=== PATIENT | male | born 1950 | race Caucasian/White ===

== ENCOUNTER 2022-08-10 13:06 | Inpatient (IN) ==
[2022-08-10] MEDS ORDERED: 0.9 % SODIUM CHLORIDE 1,000 ML IV ONE (13:21)
[2022-08-10] MEDS ORDERED: ASPIRIN 81 MG TAB.CHEW CHEWED ONE (13:21)
[2022-08-10] MEDS ORDERED: DILTIAZEM 25 MG/5 ML VIAL IV ONE (13:40)
--- NOTE | 2022-08-10 13:53 | Emergency Department Note ---
Chest Pain HPI General Chief Complaint: Chest Pain Stated Complaint: SOB Time Seen by Provider: 08/10/22 13:11 Source: patient and family Mode of arrival: ambulatory Limitations: no limitations History of Present Illness HPI Narrative: Narrative: Patient presents ED with complaints of intermittent chest pain x1 week prior to arrival. Patient states that intermittent chest pain and heart palpitations with intermittent shortness of breath as well. He does report a history of A- fib. States he last saw his complaint adjuster about 2 weeks ago. I did an echo at that time was unremarkable. Patient said that his complaint adjuster did make some changes to his diuretic. Patient denies fever, chills, nausea, vomiting, abd ominal pain, hemoptysis, headache, vision changes, facial droopiness, slurred speech, extremity weakness, extremity numbness. Patient denies any other leaving aggravating factors. Related Data Home Medications Medication Instructions Recorded Confirmed C-Pap Machine with Water Not Applicable 03/31/19 07/07/22 acetaminophen 325 mg tablet 650 mg PO Q6H PRN 05/16/20 07/07/22 (Tylenol) Previous Rx's Medication Instructions Recorded magnesium oxide 400 mg (241.3 mg 400 mg PO BID #60 tabs 05/16/20 magnesium) tablet lisinopril 40 mg tablet 40 mg PO QDAY #30 tabs 08/27/21 apixaban 5 mg tablet (Eliquis) 5 mg PO BID #60 tabs 09/04/21 amlodipine 10 mg tablet 10 mg PO QDAY #90 tabs 04/20/22 gabapentin 400 mg capsule 400 mg PO BID #60 caps 05/06/22 (Neurontin) metoprolol succinate 50 mg 50 mg PO BID #60 tabs 05/18/22 tablet,extended release 24 hr (Toprol XL) atorvastatin 10 mg tablet (Lipitor) 10 mg PO QDAY #30 tabs 06/29/22 Allergies Allergy/AdvReac Type Severity Reaction Status Date / Time No Known Drug Allergies Allergy Unverified 08/10/22 13:19 Review of Systems ROS ROS Narrative: Narrative: All systems ED: reviewed and negative except as stated. [facility] Narrative Patient History Narrative: Narrative: Medical/Surgical/Family History All Active Problems (Updated 08/10/22 @ 15:24 by Los Stinson DO) Initial Medicare annual wellness visit (Acute) Fall at home (Chronic) Wears hearing aid in both ears (Chronic ~12/2012) Osteoarthritis of right knee (Chronic) Erectile dysfunction (Chronic) Sleep apnea, obstructive (Chronic) Hyperlipidemia (Chronic) HTN (hypertension) (Chronic) Diabetes mellitus (Chronic) Postherpetic neuralgia (Chronic) Elevated PSA (Chronic) External hemorrhoids (Chronic) Tubular adenoma of colon (Chronic) Atrial fibrillation (Chronic ~02/2010) Atrial fibrillation with RVR (Chronic) Medical History (Updated 08/10/22 @ 15:24 by Los Stinson DO) Atrial fibrillation (~02/2010) Atrial fibrillation with RVR Diabetes mellitus Adult onset Elevated PSA Erectile dysfunction External hemorrhoids Fall at home HTN (hypertension) Hyperlipidemia Osteoarthritis of right knee Postherpetic neuralgia Sleep apnea, obstructive Tubular adenoma of colon Wears hearing aid in both ears (~12/2012) Surgical History History of angioplasty (~2010) No Stent History of cardiac radiofrequency ablation (~12/2016) [place] History of colonoscopy (~08/10/18) Dr. Gamez History of surgery on arm (~12/18/08) Right Humerus ORIF History of total right knee replacement (~11/2004) Family History Other No pertinent family history Social History Smoking Status: Former smoker Alcohol Intake Frequency: does not drink Substance Use: does not use Exam Narrative Narrative: Narrative: General Limitations: no limitations General appearance: Absent in distress ENT ENT: Present normal oropharynx and mucous membranes moist Chest Chest: Present normal inspection; Absent tenderness Respiratory Respiratory: Present normal lung sounds bilaterally; Absent respiratory distress Cardiovascular Cardiovascular: Present tachycardia and irregular rhythm Adbominal Abdominal: Present soft; Absent tenderness Extremities Extremities: Present normal inspection and normal capillary refill Neurological Neurological: Present oriented X3 and normal gait Psychiatric Psychiatric: Present normal affect and normal mood Skin Skin: Present warm (WNL) and intact Course Course Course Narrative: Patient was evaluated for complaints of chest pain with associated shortness of breath and heart palpitations. Patient was found to be severely tachycardic with a heart rate greater than 130. EKG was obtained and reviewed by myself and was able to identify A-fib with RVR. Labs were obtained show the patient had a negative troponin. BNP was slightly elevated up over 4000. X-ray obtained with image reviewed myself no acute cardiopulmonary finding. I initially ordered diltiazem IV as patient's initial blood pressure was greater than 120 systolically. However shortly prior to administration patient's blood pressure had dropped down into the 90s so I discontinued the IV diltiazem. I ordered IV amiodarone push. Patient was monitored but his heart rate improved for only a s hort period of time then jump back up to greater than 130. Patient was placed on amiodarone drip. I believe it be prudent to admit patient to the hospitalist service for A-fib with RVR. Case discussed with hospitalist who has agreed to admit the patient. Plan of care was discussed with patient and he expressed verbal understanding and agreement of plan Consultations Consultation #1: Case discussed with hospitalist who has agreed to admit the patient Time: 15:55 Vital Signs Vital signs: Vital Signs Temperature 97.8 F 08/10/22 13:15 Pulse Rate 144 H 08/10/22 13:15 Respiratory Rate 18 08/10/22 13:15 Blood Pressure 112/71 08/10/22 13:15 Pulse Oximetry (%) 95 08/10/22 13:15 Oxygen Delivery Method Room Air 08/10/22 13:15 Temperature 97.8 F 08/10/22 13:15 Pulse Rate 105 H 08/10/22 15:09 Respiratory Rate 22 08/10/22 15:09 Blood Pressure 108/84 08/10/22 14:47 Pulse Oximetry (%) 97 08/10/22 15:09 Oxygen Delivery Method Room Air 08/10/22 13:21 [facility] Narrative Medical decision making narrative: Narrative: Differential Diagnosis Differential Diagnosis: A-fib, [place], PE, pneumonia Medical Records Medical records reviewed: Yes I reviewed the patient's medical records. Lab Data Lab results reviewed: Yes I reviewed the patient's lab results. 08/10/22 13:36 Labs: Lab Results 08/10/22 08/10/22 08/10/22 Range/Units 13:36 13:36 13:39 WBC 8.6 (4.5-11.0) K/mcL RBC 4.35 L (4.63-6.08) M/mcL Hgb 13.7 (13.7-17.5) g/dL Hct 39.3 L (40.1-51.0) % POC Hct 39.0 L (41-55) MCV 90.3 (80.0-100.0) fL MCH 31.5 (26.0-34.0) pg MCHC 34.9 (31.0-36.0) g/dL RDW 13.5 (11.5-14.5) % Plt Count 219 (140-440) K/mcL MPV 10.2 (8.8-12.5) fL Immature Gran % (Auto) 0.1 (0.0-0.5) % Neut % (Auto) 68.1 (38.0-78.0) % Lymph % (Auto) 21.2 (15.5-49.0) % [place] % (Auto) 8.6 (1.0-12.0) % Eos % (Auto) 1.4 (0.0-7.0) % Baso % (Auto) 0.6 (0.0-2.0) % Lymph # (Auto) 1.82 (1.50-4.80) K/mcL [place] # (Auto) 0.74 (0.10-0.90) K/mcL Eos # (Auto) 0.12 (0.00-0.70) K/mcL Baso # (Auto) 0.05 (0.00-0.30) K/mcL Immature Gran # 0.01 (0.00-0.05) K/mcl Absolute Neutrophils 5.84 (1.80-8.00) K/mcL POC Sodium 141 (133-145) POC Potassium 4.2 (3.3-5.1) POC Chloride 104 (96-108) POC Total CO2 24.0 (22-30) POC BUN 18 (6-20) POC Creatinine 1.5 H (0.6-1.2) POC Glucose 143 H (70-105) POC WB Ioniz Calcium 1.04 L (1.16-1.32) Total Bilirubin 0.8 (0.1-1.0) mg/dL Direct Bilirubin 0.3 H (<0.3) mg/dL AST 37 (<40) U/L ALT 88 H (<40) U/L Alkaline Phosphatase 75 (39-117) U/L NT-Pro-B Natriuret Pep 4541.0 H (<125.0) pg/mL Total Protein 6.3 (5.9-8.4) gm/dL Albumin 3.9 (3.2-5.2) gm/dL Globulin 2.4 (2.2-3.7) gm/dL POC Troponin I (0.00-0.08) 08/10/22 Range/Units 13:40 WBC (4.5-11.0) K/mcL RBC (4.63-6.08) M/mcL Hgb (13.7-17.5) g/dL Hct (40.1-51.0) % POC Hct (41-55) MCV (80.0-100.0) fL MCH (26.0-34.0) pg MCHC (31.0-36.0) g/dL RDW (11.5-14.5) % Plt Count (140-440) K/mcL MPV (8.8-12.5) fL Immature Gran % (Auto) (0.0-0.5) % Neut % (Auto) (38.0-78.0) % Lymph % (Auto) (15.5-49.0) % [place] % (Auto) (1.0-12.0) % Eos % (Auto) (0.0-7.0) % Baso % (Auto) (0.0-2.0) % Lymph # (Auto) (1.50-4.80) K/mcL [place] # (Auto) (0.10-0.90) K/mcL Eos # (Auto) (0.00-0.70) K/mcL Baso # (Auto) (0.00-0.30) K/mcL Immature Gran # (0.00-0.05) K/mcl Absolute Neutrophils (1.80-8.00) K/mcL POC Sodium (133-145) POC Potassium (3.3-5.1) POC Chloride (96-108) POC Total CO2 (22-30) POC BUN (6-20) POC Creatinine (0.6-1.2) POC Glucose (70-105) POC WB Ioniz Calcium (1.16-1.32) Total Bilirubin (0.1-1.0) mg/dL Direct Bilirubin (<0.3) mg/dL AST (<40) U/L ALT (<40) U/L Alkaline Phosphatase (39-117) U/L NT-Pro-B Natriuret Pep (<125.0) pg/mL Total Protein (5.9-8.4) gm/dL Albumin (3.2-5.2) gm/dL Globulin (2.2-3.7) gm/dL POC Troponin I < 0.02 (0.00-0.08) Radiology Data Radiology results reviewed: Yes I reviewed the patient's radiology results. Radiology results narrative: Chest x-ray obtained with image reviewed myself, I agree with radiologist interpretation EKG Data EKG #1: EKG attestation: Yes I reviewed and interpreted this EKG. Rate: tachycardia (156) Rhythm: A.Fib Heart block present: None ST segment elevation in: None ST segment depression in: None QTc: normal QRS morphology: Present normal Interpretation: no acute changes Core Measures AMI Core Measures Followed: Yes Discharge Plan Patient/Caregiver Discharge Instructions Pt seen by ANTISQUEAK FILLER/PA only: No Clinical Impression: Atrial fibrillation Patient Disposition: Xfer As Outpt/Obs ([facility]) Condition: Fair Follow up with: Bhavik Heath MD [Primary Care Provider] - Prescriptions: No Action C-Pap Machine with Water NOTAPPLIC Rx Instructions: 13 cm H@) Full Face Mask Heated Humidifier lisinopril 40 mg tablet 40 mg PO QDAY Qty: 30 12RF Eliquis 5 mg tablet 5 mg PO BID Qty: 60 12RF amlodipine 10 mg tablet 10 mg PO QDAY Qty: 90 0RF gabapentin [Neurontin] 400 mg capsule 400 mg PO BID Qty: 60 12RF metoprolol succinate [Toprol XL] 50 mg tablet extended release 24 hr 50 mg PO BID Qty: 60 12RF atorvastatin 10 mg tablet 10 mg tablet 10 mg PO QDAY Qty: 30 12RF acetaminophen [Tylenol] 325 mg tablet 650 mg PO Q6H PRN magnesium oxide 400 mg (241.3 mg magnesium) tablet 400 mg PO BID Qty: 60 12RF
[2022-08-10 13:55] LABS: POC Calcium, Ionized 1.04 (1.16-1.32); POC Creatinine 1.5 (0.6-1.2); POC Potassium 4.2 (3.3-5.1)
[2022-08-10] MEDS ORDERED: AMIODARONE 150 MG/3 ML VIAL IV ONE ×2 (14:06→15:19)
[2022-08-10 14:15] LABS: Basophils # (Auto) 0.05 K/mcL (0.00-0.30); Basophils % (Auto) 0.6 % (0.0-2.0); Eosinophils # (Auto) 0.12 K/mcL (0.00-0.70); Eosinophils % (Auto) 1.4 % (0.0-7.0); Hematocrit 39.3 % (40.1-51.0); Hemoglobin 13.7 g/dL (13.7-17.5); Lymphocytes # (Auto) 1.82 K/mcL (1.50-4.80); Lymphocytes % (Auto) 21.2 % (15.5-49.0); Mean Cell Volume 90.3 fL (80.0-100.0); Mean Corpuscular HGB Conc 34.9 g/dL (31.0-36.0); Mean Platelet Volume 10.2 fL (8.8-12.5); Monocytes # (Auto) 0.74 K/mcL (0.10-0.90); Monocytes % (Auto) 8.6 % (1.0-12.0); Neutrophils % (Auto) 68.1 % (38.0-78.0); Platelet Count 219 K/mcL (140-440); RBC 4.35 M/mcL (4.63-6.08); Red Cell Distribution Width 13.5 % (11.5-14.5); WBC 8.6 K/mcL (4.5-11.0)
[2022-08-10] MEDS ORDERED: AMIODARONE 150 MG in DEXTROSE 5% IN WATER 100 ML IV SCH (14:30)
[2022-08-10 14:40] LABS: ALT/SGPT 88 U/L (<40); AST/SGOT 37 U/L (<40); Albumin 3.9 gm/dL (3.2-5.2); Alkaline Phosphatase 75 U/L (39-117); Bilirubin,Direct 0.3 mg/dL (<0.3); Bilirubin,Total 0.8 mg/dL (0.1-1.0); Globulin 2.4 gm/dL (2.2-3.7)
--- NOTE | 2022-08-10 14:49 | XRay Report ---
HISTORY: Chest pain, short of breath FINDINGS: The lungs are clear and normally expanded. There is no evidence of pneumonia, emphysema or congestive heart failure. The heart size, mediastinum, ej and pleura are normal. There are screws in the right humeral head. IMPRESSION: No acute abnormality Interpreted and Authenticated by: Raymond Chase 08/10/22
[2022-08-10] MEDS ORDERED: AMIODARONE 360 MG in PREMIX 1 BAG IV SCH ×2 (16:00→17:31)
--- NOTE | 2022-08-10 16:15 | Internal Med History&Physical ---
HPI History of Present Illness Patient information: Note initiated : 08/10/22 at 4:12 pm Service Date, if different from initiated Date: [] Patient: Figueroa Gomez 71 y/o M admitted on for Shortness of breath. Chief Complaint: [] History of present illness: Patient is a pleasant 71 years old male with history of morbid obesity, paroxysmal atrial fibrillation on metoprolol and Eliquis status post ablation 2016, obstructive sleep apnea on CPAP, hypertension, hyperlipidemia, diabetes mellitus 2, external hemorrhoids, impaired hearing, prostate cancer status post radical prostatectomy 01/28/2022, GERD, anxiety, former smoker quit smoking 30 y ears ago, presented with 1 week history of palpitations, shortness of breath and intermittent chest pain. 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 Patient reports he saw his hide handler Dr. Cherelle Carbajal on 07/29/2022. Echo at that time showed EF of 60%, no significant valvular disease, TSH was normal. EKG was unremarkable. Leg swelling may partially be due to amlodipine or secondary to mildly elevated blood pressure and elected to try diuretic. Patient reports no fever, chills nausea or vomiting. He reports no headache, focal deficits slurred speech. On presentation patient was found to be in A-fib with RVR, ventricular rate 156 bpm, rate dependent ST-T wave changes, he was borderline hypotensive and loaded with amiodarone in ER however remains in RVR. Labs remarkable for creatinine of 1.5, BNP 4541, negative troponin. Patient will be admitted to PCU on amiodarone drip Review of system 14 point review of system completed and was negative except mentioned above Physical examination Alert and awake, well nourished obese male, in no acute distress Normocephalic, atraumatic, increased neck circumference Chest is clear bilaterally S1 and S2, irregularly irregular, no murmurs heard, heart rate in 20s to 130s, at least 1+ peripheral edema Abdomen is obese, soft and nontender Alert and oriented, no focal deficits Appropriate mood and affect Assessment and plan A-fib with RVR status post pulmonary vein isolation/flutter ablation in 2016 Obstructive sleep apnea on CPAP Hypertension, EF 60% 07/19/09/2022 TC 154, triglycerides 89, LDL 87, HDL 50 Prediabetes, HbA1c 5.9 on 05/19 Prostate cancer status post radical prostatectomy January 2022 Postherpetic neuralgia Plan Admit to PCU Check TSH and magnesium. Keep K > 4 and Mg >2 Continue amiodarone gtt. Resume home dose metoprolol and Eliquis Monitor blood pressure closely IV Lasix 20 mg twice daily Hold lisinopril due to hypotension Continue gabapentin home dose GI and DVT prophylaxis in place Full code Critical care time 50 minutes PFSH PFS All Active Problems (Updated 08/10/22 @ 15:24 by Los Stinson DO) Initial Medicare annual wellness visit (Acute) Fall at home (Chronic) Wears hearing aid in both ears (Chronic ~12/2012) Osteoarthritis of right knee (Chronic) Erectile dysfunction (Chronic) Sleep apnea, obstructive (Chronic) Hyperlipidemia (Chronic) HTN (hypertension) (Chronic) Diabetes mellitus (Chronic) Postherpetic neuralgia (Chronic) Elevated PSA (Chronic) External hemorrhoids (Chronic) Tubular adenoma of colon (Chronic) Atrial fibrillation (Chronic ~02/2010) Atrial fibrillation with RVR (Chronic) Medical History (Updated 08/10/22 @ 15:24 by Los Stinson DO) Atrial fibrillation (~02/2010) Atrial fibrillation with RVR Diabetes mellitus Adult onset Elevated PSA Erectile dysfunction External hemorrhoids Fall at home HTN (hypertension) Hyperlipidemia Osteoarthritis of right knee Postherpetic neuralgia Sleep apnea, obstructive Tubular adenoma of colon Wears hearing aid in both ears (~12/2012) Surgical History History of angioplasty (~2010) No Stent History of cardiac radiofrequency ablation (~12/2016) [place] History of colonoscopy (~08/10/18) Dr. Gamez History of surgery on arm (~12/18/08) Right Humerus ORIF History of total right knee replacement (~11/2004) Family History Other No pertinent family history Social History marital status: occupational status: retired smoking status: Former smoker alcohol intake frequency: does not drink substance use type: does not use MEDS/ALLERGIES Home Medications and Allergies Home Medications Medication Instructions Recorded Confirmed Type C-Pap Machine with Water Not Applicable 03/31/19 07/07/22 History acetaminophen 325 mg tablet 650 mg PO Q6H PRN 05/16/20 07/07/22 History (Tylenol) magnesium oxide 400 mg (241.3 mg 400 mg PO BID #60 tabs 05/16/20 07/07/22 Rx magnesium) tablet lisinopril 40 mg tablet 40 mg PO QDAY #30 tabs 08/27/21 07/07/22 Rx apixaban 5 mg tablet (Eliquis) 5 mg PO BID #60 tabs 09/04/21 07/07/22 Rx amlodipine 10 mg tablet 10 mg PO QDAY #90 tabs 04/20/22 07/07/22 Rx gabapentin 400 mg capsule 400 mg PO BID #60 caps 05/06/22 07/07/22 Rx (Neurontin) metoprolol succinate 50 mg 50 mg PO BID #60 tabs 05/18/22 07/07/22 Rx tablet,extended release 24 hr (Toprol XL) atorvastatin 10 mg tablet (Lipitor) 10 mg PO QDAY #30 tabs 06/29/22 07/07/22 Rx Allergies Allergy/AdvReac Type Severity Reaction Status Date / Time No Known Drug Allergies Allergy Unverified 08/10/22 13:19 EXAM Constitutional Vitals: Temp Pulse Resp BP Pulse Ox O2 Del Method 97.8 F 105 H 22 108/84 97 Room Air 08/10/22 13:15 08/10/22 15:09 08/10/22 15:09 08/10/22 14:47 08/10/22 15:09 08/10/22 13:21 DATA Data Completed and Pending Labs: Labs from last 24 hours 08/10/22 08/10/22 08/10/22 13:40 13:39 13:36 WBC RBC Hgb Hct POC Hct 39.0 L MCV MCH MCHC RDW Plt Count MPV Immature Gran % (Auto) Neut % (Auto) Lymph % (Auto) [place] % (Auto) Eos % (Auto) Baso % (Auto) Lymph # (Auto) Fisher # (Auto) Eos # (Auto) Baso # (Auto) Immature Gran # Absolute Neutrophils POC Sodium 141 POC Potassium 4.2 POC Chloride 104 POC Total CO2 24.0 POC BUN 18 POC Creatinine 1.5 H POC Glucose 143 H POC WB Ioniz Calcium 1.04 L Total Bilirubin 0.8 Direct Bilirubin 0.3 H AST 37 ALT 88 H Alkaline Phosphatase 75 NT-Pro-B Natriuret Pep 4541.0 H Total Protein 6.3 Albumin 3.9 Globulin 2.4 POC Troponin I < 0.02 08/10/22 13:36 WBC 8.6 RBC 4.35 L Hgb 13.7 Hct 39.3 L POC Hct MCV 90.3 MCH 31.5 MCHC 34.9 RDW 13.5 Plt Count 219 MPV 10.2 Immature Gran % (Auto) 0.1 Neut % (Auto) 68.1 Lymph % (Auto) 21.2 [place] % (Auto) 8.6 Eos % (Auto) 1.4 Baso % (Auto) 0.6 Lymph # (Auto) 1.82 [place] # (Auto) 0.74 Eos # (Auto) 0.12 Baso # (Auto) 0.05 Immature Gran # 0.01 Absolute Neutrophils 5.84 POC Sodium POC Potassium POC Chloride POC Total CO2 POC BUN POC Creatinine POC Glucose POC WB Ioniz Calcium Total Bilirubin Direct Bilirubin AST ALT Alkaline Phosphatase NT-Pro-B Natriuret Pep Total Protein Albumin Globulin POC Troponin I A/P Time Spent With Patient Time: Total time spent is greater than 50% in coordination of care (as documented) at patient's floor/unit and/or counseling patient:
[2022-08-10] MEDS ORDERED: LACTULOSE 20 GM/30 ML ORAL.SOL PO PRN (17:31)
[2022-08-10] MEDS ORDERED: ONDANSETRON 4 MG/2 ML VIAL IV PRN (17:31)
[2022-08-10] MEDS ORDERED: ACETAMINOPHEN 325 MG TABLET PO PRN (17:31)
[2022-08-10] MEDS ORDERED: SENNOSIDES 1 TABLET PO PRN (17:31)
[2022-08-10 18:37] LABS: ALT/SGPT 80 U/L (<40); AST/SGOT 32 U/L (<40); Albumin 3.6 gm/dL (3.2-5.2); Albumin/Globulin Ratio 1.5 (1.0-2.3); Alkaline Phosphatase 72 U/L (39-117); Bilirubin,Total 0.7 mg/dL (0.1-1.0); Blood Urea Nitrogen 16 mg/dL (8-23); Calcium 8.7 mg/dL (8.6-10.4); Carbon Dioxide 23 mmol/L (22-30); Chloride 106 mmol/L (96-108); Free T4 (Free Thyroxine) 1.17 ng/dL (0.93-1.70); Globulin 2.4 gm/dL (2.2-3.7); Glomerular Filtration Rate 67; Glucose 116 mg/dL (70-105); T4 (Thyroxine) 5.9 ug/dl (5.0-12.0)
[2022-08-10] MEDS: DOCUSATE SODIUM 100 MG CAPSULE PO SCH (21:00)
[2022-08-10] MEDS: 0.9 % SODIUM CHLORIDE 10 ML SYRINGE IV SCH (22:00)
[2022-08-10] MEDS: AMIODARONE 360 MG in PREMIX 1 BAG IV SCH (23:36)
[2022-08-11] MEDS: 0.9 % SODIUM CHLORIDE 10 ML SYRINGE IV SCH ×4 (06:17→21:00)
[2022-08-11 06:55] LABS: Basophils # (Auto) 0.05 K/mcL (0.00-0.30); Basophils % (Auto) 0.7 % (0.0-2.0); Eosinophils # (Auto) 0.12 K/mcL (0.00-0.70); Eosinophils % (Auto) 1.8 % (0.0-7.0); Hematocrit 37.8 % (40.1-51.0); Lymphocytes # (Auto) 1.66 K/mcL (1.50-4.80); Lymphocytes % (Auto) 24.4 % (15.5-49.0); Mean Cell Volume 90.9 fL (80.0-100.0); Mean Corpuscular HGB Conc 34.4 g/dL (31.0-36.0); Mean Platelet Volume 10.2 fL (8.8-12.5); Monocytes # (Auto) 0.68 K/mcL (0.10-0.90); Neutrophils % (Auto) 62.8 % (38.0-78.0); Platelet Count 192 K/mcL (140-440); RBC 4.16 M/mcL (4.63-6.08); Red Cell Distribution Width 13.8 % (11.5-14.5); WBC 6.8 K/mcL (4.5-11.0)
[2022-08-11 07:07] LABS: ALT/SGPT 77 U/L (<40); AST/SGOT 29 U/L (<40); Albumin 3.5 gm/dL (3.2-5.2); Albumin/Globulin Ratio 1.7 (1.0-2.3); Alkaline Phosphatase 67 U/L (39-117); Bilirubin,Total 0.9 mg/dL (0.1-1.0); Blood Urea Nitrogen 15 mg/dL (8-23); Calcium 8.1 mg/dL (8.6-10.4); Carbon Dioxide 23 mmol/L (22-30); Chloride 108 mmol/L (96-108); Globulin 2.1 gm/dL (2.2-3.7); Glomerular Filtration Rate 76; Glucose 128 mg/dL (70-105)
[2022-08-11] MEDS: METOPROLOL SUCCINATE 50 MG TAB.XL.24H PO SCH ×2 (08:09→20:57)
[2022-08-11] MEDS: GABAPENTIN 400 MG CAPSULE PO SCH ×3 (08:09→20:57)
[2022-08-11] MEDS: ATORVASTATIN 10 MG TABLET PO SCH (08:09)
[2022-08-11] MEDS: MAGNESIUM OXIDE 400 MG TABLET PO SCH ×2 (08:09→20:57)
[2022-08-11] MEDS: amLODIPine 10 MG TABLET PO SCH (08:09)
[2022-08-11] MEDS: DOCUSATE SODIUM 100 MG CAPSULE PO SCH ×2 (08:10→20:57)
[2022-08-11] MEDS ORDERED: APIXABAN 5 MG TABLET PO SCH (09:00)
--- NOTE | 2022-08-11 09:09 | Internal Med Progress Note ---
SUBJECTIVE Subjective Patient information: Note initiated : 08/11/22 at 9:04 am Service Date, if different from initiated Date: [] Patient: Figueroa Gomez 71 y/o M admitted on 08/10/22 for Shortness of breath, AFib, RBR. Chief Complaint: [] Additional PMFSH (Level 3 Only): History of present illness: Patient is a pleasant 71 years old male with history of morbid obesity, paroxysmal atrial fibrillation on metoprolol and Eliquis status post ablation 2016, obstructive sleep apnea on CPAP, hypertension, hyperlipidemia, diabetes mellitus 2, external hemorrhoids, impaired hearing, prostate cancer status post radical prostatectomy 01/28/2022, GERD, anxiety, former smoker quit smoking 30 years ago, presented with 1 week history of palpitations, shortness of breath and intermittent chest pain. 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 Patient reports he saw his chemical dependency attendant Dr. Cherelle Carbajal on 07/29/2022. Echo at that time showed EF of 60%, no significant valvular disease, TSH was normal. EKG was unremarkable. Leg swelling may partially be due to amlodipine or secondary to mildly elevated blood pressure and elected to try diuretic. Patient reports no fever, chills nausea or vomiting. He reports no headache, focal deficits slurred speech. On presentation patient was found to be in A-fib with RVR, ventricular rate 156 bpm, rate dependent ST-T wave changes, he was borderline hypotensive and loaded with amiodarone in ER however remains in RVR. Labs remarkable for creatinine of 1.5, BNP 4541, negative troponin. Patient will be admitted to PCU on amiodarone drip 08/11 patient breathing is better after receiving Lasix, his heart rate is still elevated on amiodarone and 130s to 140s. Blood pressure is stable now, he is awaiting for his morning metoprolol dose. If heart rate does not get controlled we will start him on IV diltiazem Review of system 14 point review of system completed and was negative except mentioned above Physical examination Alert and awake, well nourished obese male, in no acute distress Normocephalic, atraumatic, increased neck circumference Chest is clear bilaterally S1 and S2, irregularly irregular, no murmurs heard, heart rate in 120s, trace peripheral edema improved from before Alert and oriented, no focal deficits Appropriate mood and affect Assessment and plan A-fib with RVR status post pulmonary vein isolation/flutter ablation in 2016 TSH, T4 and Mag within normal limit Obstructive sleep apnea on CPAP Hypertension, EF 60% 07/19 TC 154, triglycerides 89, LDL 87, HDL 50 Prediabetes, HbA1c 5.9 on 05/19 Prostate cancer status post radical prostatectomy January 2022 Postherpetic neuralgia Plan Continue amiodarone gtt. He is awaiting his morning dose of metoprolol, continue Eliquis If heart rate not controlled we will start him on diltiazem drip Monitor blood pressure closely Continue IV Lasix 20 mg twice daily Hold amlodipine and lisinopril to allow for diuresis and rate control Continue gabapentin home dose GI and DVT prophylaxis in place Full code Critical care time 45 minutes Constitutional Vitals: Vital Signs Temp Pulse Resp BP Pulse Ox O2 Del Method 98.3 F 132 H 19 127/105 98 Room Air 08/11/22 08:26 08/11/22 07:02 08/11/22 08:26 08/11/22 08:26 08/11/22 07:02 08/11/22 06:16 Period Temp Pulse Resp BP Sys/Desai Pulse Ox O2 Del Method O2 Flow Rate Last 24 Hr 97.8 F-99.1 F 38-165 0-31 91-163/70-148 93-98 Room Air-Room Air Intake and Output 08/10/22 08/11/22 08/11/22 19:59 03:59 11:59 Intake Total 1103 200 Output Total 200 625 Balance 903 -425 Weight 127.006 kg 132.948 kg Intake & Output: Intake & Output 08/10/22 08/11/22 08/11/22 19:59 03:59 11:59 Intake Total 1103 200 Output Total 200 625 Balance 903 -425 Weight 127.006 kg 132.948 kg Intake: IV 1103 200 Sodium Chloride 0.9% 1,000 ml @ 1000 Wide Open IV .Q0M ONE Rx#: [id number] Cordarone 150 mg In Dextrose 5% 103 in Water 100 ml @ 618 mls/hr IV ONCE MARILEE Rx#:[id number] Nexterone 360 mg In Premix 1 200 Bag @ 1 MG/MIN 33.333 mls/hr IV .Q6H [facility] Rx#:[id number] Output: Void Amount 200 625 Other: Meal Dinner Percent of Meal Consumed 100% Urine Appearance Clear Clear Urine Color Yellow Yellow OBJ DATA Labs 08/11/22 05:47 08/11/22 05:46 Labs: Abnormal Lab Results 08/11/22 08/11/22 08/10/22 05:47 05:46 17:39 RBC 4.16 L Hgb 13.0 L Hct 37.8 L POC Hct POC Creatinine Glucose 128 H 116 H POC Glucose Calcium 8.1 L POC WB Ioniz Calcium Direct Bilirubin ALT 77 H 80 H NT-Pro-B Natriuret Pep Total Protein 5.6 L Globulin 2.1 L 08/10/22 08/10/22 08/10/22 13:39 13:36 13:36 RBC 4.35 L Hgb Hct 39.3 L POC Hct 39.0 L POC Creatinine 1.5 H Glucose POC Glucose 143 H Calcium POC WB Ioniz Calcium 1.04 L Direct Bilirubin 0.3 H ALT 88 H NT-Pro-B Natriuret Pep 4541.0 H Total Protein Globulin Meds: Medications Acetaminophen (Acetaminophen 325 Mg Tablet) 650 mg PO Q6HP PRN; Protocol PRN Reason: Per Pain Protocol/Fever > 101 Amlodipine Besylate (Amlodipine 10 Mg Tablet) 10 mg PO QDAY [facility] Last Admin: 08/11/22 08:09 Dose: Not Given Apixaban (Apixaban 5 Mg Tablet) 5 mg PO BID [facility] Last Admin: 08/11/22 08:08 Dose: 5 mg Atorvastatin Calcium (Atorvastatin 10 Mg Tablet) 10 mg PO QDAY [facility] Last Admin: 08/11/22 08:09 Dose: 10 mg Docusate Sodium (Docusate Sodium 100 Mg Capsule) 100 mg PO BID [facility] Last Admin: 08/11/22 08:10 Dose: Not Given Gabapentin (Gabapentin 400 Mg Capsule) 400 mg PO BID [facility] Last Admin: 08/11/22 08:13 Dose: Not Given AMIODARONE 360 mg/ Premix 200 mls @ 16.667 mls/hr IV .Q12H [facility]; Protocol Stop: 08/11/22 17:35 Last Admin: 08/10/22 23:36 Dose: 0.5 mg/min, 16.667 mls/hr Lactulose (Lactulose 20 Gm/30 Ml Oral.Dina) 10 gm PO DAILYP PRN PRN Reason: Constipation Magnesium Oxide (Magnesium Oxide 400 Mg Tablet) 400 mg PO BID [facility] Last Admin: 08/11/22 08:09 Dose: 400 mg Metoprolol Succinate (Metoprolol Succinate 50 Mg Tab.Xl.24h) 50 mg PO BID [facility] Last Admin: 08/11/22 08:09 Dose: 50 mg Ondansetron HCl (Ondansetron 4 Mg/2 Ml Vial) 4 mg IV Q4HP PRN; Protocol PRN Reason: Nausea And Vomiting Senna (Sennosides 1 Tablet) 2 tab PO HSP PRN PRN Reason: Constipation Sodium Chloride (0.9 % Sodium Chloride 10 Ml Syringe) 10 ml IV Q8 [facility] Last Admin: 08/11/22 06:17 Dose: 10 ml A/P Time Spent With Patient Time: Total time spent is greater than 50% in coordination of care (as documented) at patient's floor/unit and/or counseling patient:
[2022-08-11] MEDS ORDERED: METOPROLOL SUCCINATE 25 MG TAB.XL.24H PO ONE (09:53)
[2022-08-11] MEDS: AMIODARONE 360 MG in PREMIX 1 BAG IV SCH (11:00)
[2022-08-11] MEDS: FUROSEMIDE 20 MG/2 ML VIAL IV SCH (12:09)
[2022-08-11 19:28] LABS: Estimated Average Glucose(eAG) 120 mg/dL; Hemoglobin A1C 5.8 % Hgb (4.0-6.0)
[2022-08-11] MEDS ORDERED: [UNRECOGNIZED DRUG - OTHER] SCH (21:00)
[2022-08-12] MEDS: 0.9 % SODIUM CHLORIDE 10 ML SYRINGE IV SCH (05:40)
[2022-08-12 07:05] LABS: Basophils # (Auto) 0.03 K/mcL (0.00-0.30); Basophils % (Auto) 0.6 % (0.0-2.0); Eosinophils # (Auto) 0.19 K/mcL (0.00-0.70); Eosinophils % (Auto) 3.6 % (0.0-7.0); Hematocrit 36.1 % (40.1-51.0); Hemoglobin 12.8 g/dL (13.7-17.5); Lymphocytes # (Auto) 1.18 K/mcL (1.50-4.80); Lymphocytes % (Auto) 22.1 % (15.5-49.0); Mean Cell Volume 89.1 fL (80.0-100.0); Mean Corpuscular HGB Conc 35.5 g/dL (31.0-36.0); Monocytes # (Auto) 0.48 K/mcL (0.10-0.90); Neutrophils % (Auto) 64.5 % (38.0-78.0); Platelet Count 177 K/mcL (140-440); RBC 4.05 M/mcL (4.63-6.08); Red Cell Distribution Width 13.5 % (11.5-14.5); WBC 5.4 K/mcL (4.5-11.0)
[2022-08-12 07:51] LABS: ALT/SGPT 62 U/L (<40); AST/SGOT 22 U/L (<40); Albumin 3.4 gm/dL (3.2-5.2); Albumin/Globulin Ratio 1.7 (1.0-2.3); Alkaline Phosphatase 68 U/L (39-117); Bilirubin,Total 1.2 mg/dL (0.1-1.0); Blood Urea Nitrogen 15 mg/dL (8-23); Calcium 8.2 mg/dL (8.6-10.4); Carbon Dioxide 24 mmol/L (22-30); Chloride 106 mmol/L (96-108); Glomerular Filtration Rate 76; Glucose 108 mg/dL (70-105)
[2022-08-12] MEDS: DOCUSATE SODIUM 100 MG CAPSULE PO SCH (08:31)
[2022-08-12] MEDS: FUROSEMIDE 20 MG/2 ML VIAL IV SCH (08:32)
[2022-08-12] MEDS: ATORVASTATIN 10 MG TABLET PO SCH (08:32)
[2022-08-12] MEDS: GABAPENTIN 400 MG CAPSULE PO SCH (08:33)
[2022-08-12] MEDS: MAGNESIUM OXIDE 400 MG TABLET PO SCH (08:33)
[2022-08-12] MEDS: METOPROLOL SUCCINATE 50 MG TAB.XL.24H PO SCH (08:33)
[2022-08-12] MEDS ORDERED: APIXABAN 5 MG TABLET PO ONE (09:53)
[2022-08-12] MEDS: amLODIPine 10 MG TABLET PO SCH (10:25)
--- NOTE | 2022-08-12 11:16 | Discharge Summary ---
Discharge Provider Provider IMPORTANT FOLLOW-UP INFORMATION FOR PCP: Patient information: Note initiated : 08/12/22 at 11:10 am Service Date, if different from initiated Date: [] Patient: Figueroa Gomez 71 y/o M admitted on 08/10/22 for Shortness of breath, AFib, RBR. Chief Complaint: [] Date of admission: 08/10/22 17:14 Discharge date: 08/12/22 Primary care physician: Bhavik Heath MD Consults: 08/10/22 Consult to Physician [CONS] Stat Comment: Consulting Provider: Joaquin Dunn Reason For Exam: Physician to Consult COURSE Hospital Course Hospital course: History of present illness: Patient is a pleasant 71 years old male with history of morbid obesity, paroxysmal atrial fibrillation on metoprolol and Eliquis status post ablation 2016, obstructive sleep apnea on CPAP, hypertension, hyperlipidemia, diabetes mellitus 2, external hemorrhoids, impaired hearing, prostate cancer status post radical prostatectomy 01/28/2022, GERD, anxiety, former smoker quit smoking 30 years ago, presented with 1 week history of palpitations, shortness of breath and intermittent chest pain. He is a retired electrician refinery but fairly active within the house and noted that he was getting short of breath taking flight of stairs which is unusual for him. Patient reports he saw his massage coordinator Dr. Cherelle Carbajal on 07/29/2022. Echo at that time showed EF of 60%, no significant va lvular disease, TSH was normal. EKG was unremarkable. Leg swelling may partially be due to amlodipine or secondary to mildly elevated blood pressure and elected to try diuretic. Patient reports no fever, chills nausea or vomiting. He reports no headache, focal deficits slurred speech. On presentation patient was found to be in A-fib with RVR, ventricular rate 156 bpm, rate dependent ST-T wave changes, he was borderline hypotensive and loaded with amiodarone in ER however remains in RVR. Labs remarkable for creatinine of 1.5, BNP 4541, negative troponin. Patient will be admitted to PCU on amiodarone drip 08/11 patient breathing is better after receiving Lasix, his heart rate is still elevated on amiodarone and 130s to 140s. Blood pressure is stable now, he is awaiting for his morning metoprolol dose. If heart rate does not get controlled we will start him on IV diltiazem 08/12 patient remains in sinus rhythm throughout. He received 75 mg of metoprolol yesterday morning and 50 in the evening. His heart rate has been around high 50s and low 60s. Discussed will increase his Lasix to 40 mg daily. Discussed echo with left ventricular systolic function borderline reduced, right ventricle normal size, right ventricular systolic function mildly reduced, mild to moderate MR and TR, trace aortic insufficiency. No pericardial effusion. Discharge diagnosis A-fib with RVR status post pulmonary vein isolation/flutter ablation in 2016 TSH, T4 and Mag within normal limit Patient recently started on Lasix 20 mg daily. proBNP was elevated at 4500 on admission Patient received amiodarone gtt, diuresed with IV Lasix Echo with left ventricular systolic function borderline reduced, right ventricle normal size, right ventricular systolic function mildly reduced, mild to moderate MR and TR, trace aortic insufficiency. No pericardial effusion. Patient converted to normal sinus rhythm with heart rate in low 60s. Heart rate stable on metoprolol Lasix increased to 40 mg daily BMP to be done in 5 to 7 days Obstructive sleep apnea on CPAP Hypertension, stable Hyperlipidemia/09/2022 TC 154, triglycerides 89, LDL 87, HDL 50 Prediabetes, HbA1c 5.9 on 05/19 Prostate cancer status post radical prostatectomy January 2022 Postherpetic neuralgia Full code Physical examination Alert and awake, well nourished obese male, in no acute distress Normocephalic, atraumatic, increased neck circumference Chest is clear bilaterally S1 and S2, irregularly irregular, no murmurs heard, heart rate in 120s, trace peripheral edema improved from before Alert and oriented, no focal deficits Appropriate mood and affect Total time taken 40 minutes Discharge diagnosis: Afib RVR Time Spent with Patient Time attestation: Total time spent providing and/or coordinating discharge services: Time spent: Greater than 30 minutes EXAM Constitutional Vitals: Temp Pulse Resp BP Pulse Ox O2 Del Method 98.2 F 50 L 15 132/78 97 Room Air 08/12/22 08:41 08/12/22 06:01 08/12/22 08:41 08/12/22 10:23 08/12/22 07:04 08/12/22 10:23 Discharge Data Data Completed and Pending Labs on day of discharge: Labs from last 24 hours 0508/12/22 08/11/22 05:42 05:42 05:47 WBC 5.4 RBC 4.05 L Hgb 12.8 L Hct 36.1 L MCV 89.1 MCH 31.6 MCHC 35.5 RDW 13.5 Plt Count 177 MPV 10.0 Immature Gran % (Auto) 0.2 Neut % (Auto) 64.5 Lymph % (Auto) 22.1 Cotton % (Auto) 9.0 Eos % (Auto) 3.6 Baso % (Auto) 0.6 Lymph # (Auto) 1.18 L Cotton # (Auto) 0.48 Eos # (Auto) 0.19 Baso # (Auto) 0.03 Immature Gran # 0.01 Absolute Neutrophils 3.46 Sodium 139 Potassium 4.3 Chloride 106 Carbon Dioxide 24 Anion Gap 9.0 BUN 15 Creatinine 1.0 GFR Calculation 76 Glucose 108 H Hemoglobin A1c 5.8 Estim Average Glucose 120 Calcium 8.2 L Total Bilirubin 1.2 H AST 22 ALT 62 H Alkaline Phosphatase 68 Total Protein 5.4 L Albumin 3.4 Globulin 2.0 L Albumin/Globulin Ratio 1.7 Discharge Plan Patient/Caregiver Discharge Instructions Activity: increase activity as tolerated Diet: Cardiac Instructions: A-fib (Atrial Fibrillation) (GEN) Prescriptions: New furosemide [Lasix] 40 mg tablet 40 mg PO QAM Qty: 30 0RF Continued C-Pap Machine with Water 13 cm .Route QPM Rx Instructions: 13 cm H@) Full Face Mask Heated Humidifier lisinopril 40 mg tablet 40 mg PO QDAY Qty: 30 12RF Eliquis 5 mg tablet 5 mg PO BID Qty: 60 12RF amlodipine 10 mg tablet 10 mg PO QDAY Qty: 90 0RF gabapentin [Neurontin] 400 mg capsule 400 mg PO BID Qty: 60 12RF metoprolol succinate [Toprol XL] 50 mg tablet extended release 24 hr 50 mg PO BID Qty: 60 12RF atorvastatin 10 mg tablet 10 mg tablet 10 mg PO QDAY Qty: 30 12RF acetaminophen [Tylenol] 325 mg tablet 650 mg PO Q6H PRN (Reason: Pain) magnesium oxide 400 mg (241.3 mg magnesium) tablet 400 mg PO BID Qty: 60 12RF Follow Up Plan Follow up with: Bhavik Heath MD [Primary Care Provider] - (Your primary care physician will contact you to schedule an appointment) Cherelle Carbajal MD [Physician] - (Your [facility] will contact you to schedule a post hospital appointment.) Patient Disposition: Home, Self-Care Prognosis: Fair Overall status at discharge: patient is back to baseline Discharge Orders: Discharge Order (Routine); Ordered 08/12/22 Ordered By: Joaquin uDnn
--- NOTE | 2022-08-13 06:57 | EKG ---
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
--- NOTE | 2022-08-13 07:02 | EKG ---
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
== END 2022-08-12 13:05 | disposition home or self-care (01) | DRG 309 ==
LOC: ED 13:06 → ICU 15:14
PROVIDERS: ADMIT Internal Medicine; ATTEND Internal Medicine

== ENCOUNTER 2023-09-08 05:33 | Inpatient (IN) ==
[2023-09-08] MEDS ORDERED: IOPAMIDOL 100 ML BOTTLE IV ONE (05:34)
[2023-09-08] MEDS: 0.9 % SODIUM CHLORIDE 1,000 ML IV ONE (05:56)
[2023-09-08 06:27] LABS: Basophils # (Auto) 0.01 K/mcL (0.00-0.30); Basophils % (Auto) 0.1 % (0.0-2.0); Eosinophils # (Auto) 0 K/mcL (0.00-0.70); Eosinophils % (Auto) 0 % (0.0-7.0); Hematocrit 39.6 % (40.1-51.0); Hemoglobin 14.1 g/dL (13.7-17.5); Lymphocytes # (Auto) 0.91 K/mcL (1.50-4.80); Lymphocytes % (Auto) 8.6 % (15.5-49.0); Mean Cell Volume 88.8 fL (80.0-100.0); Mean Corpuscular HGB Conc 35.6 g/dL (31.0-36.0); Mean Platelet Volume 9.2 fL (8.8-12.5); Monocytes # (Auto) 0.64 K/mcL (0.10-0.90); Neutrophils % (Auto) 84.8 % (38.0-78.0); Platelet Count 123 K/mcL (140-440); RBC 4.46 M/mcL (4.63-6.08); WBC 10.6 K/mcL (4.5-11.0)
[2023-09-08 06:38] LABS: ALT/SGPT 42 U/L (<40); AST/SGOT 78 U/L (<40); Albumin 3.6 gm/dL (3.2-5.2); Albumin/Globulin Ratio 1.2 (1.0-2.3); Alkaline Phosphatase 53 U/L (39-117); Blood Urea Nitrogen 21 mg/dL (8-23); Calcium 8.9 mg/dL (8.6-10.4); Carbon Dioxide 16 mmol/L (22-30); Chloride 94 mmol/L (96-108); Glomerular Filtration Rate 42; Glucose 204 mg/dL (70-105)
[2023-09-08 07:10] LABS: INR 1.1 (0.9-1.1); Prothrombin Time 14.5 sec (11.9-14.5)
[2023-09-08 08:13] LABS: Appearance,Urine Clear (Clear); Bacteria,Urine Mod /hpf (0); Bilirubin,Urine Negative (Negative); Color,Urine Yellow; Culture Indicated,Urine Yes; Glucose,Urine (UA) 100 mg/dL (Negative); Ketones,Urine Trace mg/dL (Negative); Leukocyte Esterase,Urine Negative /uL (Negative); Nitrate,Urine Negative (Negative); PH,Urine 5.5 (5.0-9.0); Protein,Urine >=300 mg/dL (Negative); Specific Gravity,Urine >= 1.030 (1.000-1.035); Urine Blood Large ery/mcL (Negative); Urine Hyaline Cast 4 /lph (0-2); Urine RBC 9 /hpf (0-3); Urine Squamous Epithelial Cell 0 /hpf (0-4); Urine WBC 1 /hpf (0-4); Urobilinogen,Urine Normal
[2023-09-08] MEDS: cefTRIAXone 1 GM VIAL IV ONE ×2 (09:26→13:07)
[2023-09-08 10:14] LABS: Appearance,Urine Clear (Clear); Bacteria,Urine Few /hpf (0); Bilirubin,Urine Negative (Negative); Color,Urine Yellow; Culture Indicated,Urine Yes; Glucose,Urine (UA) Negative (Negative); Ketones,Urine Trace mg/dL (Negative); Leukocyte Esterase,Urine Negative /uL (Negative); Nitrate,Urine Negative (Negative); PH,Urine 5.5 (5.0-9.0); Protein,Urine >=300 mg/dL (Negative); Urine Blood Large ery/mcL (Negative); Urine Hyaline Cast 2 /lph (0-2); Urine RBC 3 /hpf (0-3); Urine Squamous Epithelial Cell 1 /hpf (0-4); Urine WBC 3 /hpf (0-4); Urobilinogen,Urine Normal
[2023-09-08] MEDS: LACTATED RINGERS 1,000 ML IV ONE (11:15)
[2023-09-08 11:25] LABS: Creatine Kinase 1314 U/L (24-195); Phosphorous 1.8 mg/dL (2.5-4.5)
[2023-09-08] MEDS ORDERED: BISACODYL 10 MG SUPP.RECT PR PRN (11:51)
[2023-09-08] MEDS ORDERED: ONDANSETRON 4 MG/2 ML VIAL IV PRN (11:51)
[2023-09-08] MEDS: LACTATED RINGERS 1,000 ML IV SCH (11:52)
[2023-09-08] MEDS: 0.9 % SODIUM CHLORIDE 10 ML SYRINGE IV SCH (14:22)
[2023-09-08] MEDS: ACETAMINOPHEN 325 MG TABLET PO PRN (16:33)
[2023-09-08] MEDS: METOPROLOL SUCCINATE 50 MG TAB.XL.24H PO SCH (20:52)
[2023-09-08] MEDS: SENNOSIDES 1 TABLET PO SCH (20:52)
[2023-09-08] MEDS: APIXABAN 5 MG TABLET PO SCH (20:52)
[2023-09-08] MEDS ORDERED: [UNRECOGNIZED DRUG - OTHER] SCH (21:00)
[2023-09-09 06:26] LABS: Basophils # (Auto) 0 K/mcL (0.00-0.30); Basophils % (Auto) 0 % (0.0-2.0); Eosinophils # (Auto) 0 K/mcL (0.00-0.70); Eosinophils % (Auto) 0 % (0.0-7.0); Hematocrit 34.8 % (40.1-51.0); Hemoglobin 12.4 g/dL (13.7-17.5); Lymphocytes # (Auto) 0.49 K/mcL (1.50-4.80); Lymphocytes % (Auto) 5.5 % (15.5-49.0); Mean Cell Volume 90.4 fL (80.0-100.0); Mean Corpuscular HGB Conc 35.6 g/dL (31.0-36.0); Mean Platelet Volume 9.3 fL (8.8-12.5); Monocytes # (Auto) 0.78 K/mcL (0.10-0.90); Monocytes % (Auto) 8.8 % (1.0-12.0); Neutrophils % (Auto) 85.2 % (38.0-78.0); Platelet Count 117 K/mcL (140-440); RBC 3.85 M/mcL (4.63-6.08); Red Cell Distribution Width 13.2 % (11.5-14.5); WBC 8.9 K/mcL (4.5-11.0)
[2023-09-09 06:53] LABS: Phosphorous 2.6 mg/dL (2.5-4.5)
[2023-09-09 06:55] LABS: ALT/SGPT 44 U/L (<40); AST/SGOT 62 U/L (<40); Albumin/Globulin Ratio 1.1 (1.0-2.3); Alkaline Phosphatase 46 U/L (39-117); Bilirubin,Total 0.8 mg/dL (0.1-1.0); Blood Urea Nitrogen 17 mg/dL (8-23); Calcium 8.4 mg/dL (8.6-10.4); Carbon Dioxide 20 mmol/L (22-30); Chloride 98 mmol/L (96-108); Creatine Kinase 435 U/L (24-195); Globulin 2.8 gm/dL (2.2-3.7); Glomerular Filtration Rate 55; Glucose 146 mg/dL (70-105)
[2023-09-09] MEDS: cefTRIAXone 1 GM VIAL IV SCH (09:00)
[2023-09-09] MEDS: amLODIPine 10 MG TABLET PO SCH (09:00)
[2023-09-09] MEDS: ATORVASTATIN 10 MG TABLET PO SCH (09:00)
[2023-09-09] MEDS: AMPICILLIN SODIUM/SULBACTAM NA 3 GM in 0.9 % SODIUM CHLORIDE 100 ML IV SCH (22:30)
[2023-09-10 06:41] LABS: Basophils # (Auto) 0.01 K/mcL (0.00-0.30); Basophils % (Auto) 0.1 % (0.0-2.0); Eosinophils # (Auto) 0.02 K/mcL (0.00-0.70); Eosinophils % (Auto) 0.2 % (0.0-7.0); Hematocrit 32.3 % (40.1-51.0); Hemoglobin 11.3 g/dL (13.7-17.5); Lymphocytes # (Auto) 0.51 K/mcL (1.50-4.80); Mean Cell Volume 90.7 fL (80.0-100.0); Mean Platelet Volume 9.2 fL (8.8-12.5); Monocytes # (Auto) 0.75 K/mcL (0.10-0.90); Monocytes % (Auto) 8.8 % (1.0-12.0); Neutrophils % (Auto) 84.4 % (38.0-78.0); Platelet Count 111 K/mcL (140-440); RBC 3.56 M/mcL (4.63-6.08); Red Cell Distribution Width 13.4 % (11.5-14.5); WBC 8.5 K/mcL (4.5-11.0)
[2023-09-10 06:59] LABS: Creatine Kinase 153 U/L (24-195)
[2023-09-10 07:00] LABS: Phosphorous 2.3 mg/dL (2.5-4.5)
[2023-09-10 07:03] LABS: ALT/SGPT 54 U/L (<40); AST/SGOT 64 U/L (<40); Albumin 2.9 gm/dL (3.2-5.2); Albumin/Globulin Ratio 1.2 (1.0-2.3); Alkaline Phosphatase 52 U/L (39-117); Bilirubin,Total 0.7 mg/dL (0.1-1.0); Blood Urea Nitrogen 18 mg/dL (8-23); Calcium 8.4 mg/dL (8.6-10.4); Carbon Dioxide 23 mmol/L (22-30); Chloride 98 mmol/L (96-108); Globulin 2.4 gm/dL (2.2-3.7); Glomerular Filtration Rate 60; Glucose 156 mg/dL (70-105)
[2023-09-11 06:30] LABS: Basophils # (Auto) 0.01 K/mcL (0.00-0.30); Basophils % (Auto) 0.1 % (0.0-2.0); Eosinophils # (Auto) 0.04 K/mcL (0.00-0.70); Eosinophils % (Auto) 0.5 % (0.0-7.0); Hematocrit 33.1 % (40.1-51.0); Hemoglobin 11.3 g/dL (13.7-17.5); Lymphocytes % (Auto) 7.5 % (15.5-49.0); Mean Cell Volume 92.5 fL (80.0-100.0); Mean Corpuscular HGB Conc 34.1 g/dL (31.0-36.0); Mean Platelet Volume 9.7 fL (8.8-12.5); Monocytes # (Auto) 0.75 K/mcL (0.10-0.90); Monocytes % (Auto) 9.4 % (1.0-12.0); Neutrophils % (Auto) 81.6 % (38.0-78.0); Platelet Count 145 K/mcL (140-440); RBC 3.58 M/mcL (4.63-6.08); Red Cell Distribution Width 13.5 % (11.5-14.5)
[2023-09-11 06:37] LABS: Phosphorous 2.5 mg/dL (2.5-4.5)
[2023-09-11 06:37] LABS: ALT/SGPT 58 U/L (<40); AST/SGOT 56 U/L (<40); Albumin 2.7 gm/dL (3.2-5.2); Alkaline Phosphatase 57 U/L (39-117); Bilirubin,Total 0.8 mg/dL (0.1-1.0); Blood Urea Nitrogen 21 mg/dL (8-23); Calcium 8.5 mg/dL (8.6-10.4); Carbon Dioxide 25 mmol/L (22-30); Chloride 98 mmol/L (96-108); Creatine Kinase 82 U/L (24-195); Globulin 2.8 gm/dL (2.2-3.7); Glomerular Filtration Rate 60; Glucose 158 mg/dL (70-105)
[2023-09-11] MEDS: MAGNESIUM HYDROXIDE 30 ML ORAL.SUSP PO PRN (14:01)
[2023-09-12 07:21] LABS: Phosphorous 2.8 mg/dL (2.5-4.5)
[2023-09-12 07:28] LABS: ALT/SGPT 67 U/L (<40); AST/SGOT 58 U/L (<40); Albumin 2.6 gm/dL (3.2-5.2); Albumin/Globulin Ratio 0.9 (1.0-2.3); Alkaline Phosphatase 64 U/L (39-117); Bilirubin,Total 0.6 mg/dL (0.1-1.0); Blood Urea Nitrogen 21 mg/dL (8-23); Calcium 8.6 mg/dL (8.6-10.4); Carbon Dioxide 24 mmol/L (22-30); Chloride 101 mmol/L (96-108); Globulin 2.9 gm/dL (2.2-3.7); Glomerular Filtration Rate 60; Glucose 160 mg/dL (70-105)
[2023-09-12 08:06] LABS: Basophils # (Auto) 0.03 K/mcL (0.00-0.30); Basophils % (Auto) 0.4 % (0.0-2.0); Eosinophils % (Auto) 1.2 % (0.0-7.0); Hematocrit 32.2 % (40.1-51.0); Hemoglobin 11.1 g/dL (13.7-17.5); Lymphocytes # (Auto) 0.61 K/mcL (1.50-4.80); Lymphocytes % (Auto) 7.6 % (15.5-49.0); Mean Cell Volume 94.2 fL (80.0-100.0); Mean Corpuscular HGB Conc 34.5 g/dL (31.0-36.0); Mean Platelet Volume 9.2 fL (8.8-12.5); Monocytes # (Auto) 0.67 K/mcL (0.10-0.90); Monocytes % (Auto) 8.3 % (1.0-12.0); Neutrophils % (Auto) 81.5 % (38.0-78.0); Platelet Count 216 K/mcL (140-440); RBC 3.42 M/mcL (4.63-6.08); Red Cell Distribution Width 13.3 % (11.5-14.5); WBC 8.1 K/mcL (4.5-11.0)
[2023-09-12] MEDS: SPIRONOLACTONE 25 MG TABLET PO SCH (09:04)
[2023-09-13 07:10] LABS: Basophils # (Auto) 0.03 K/mcL (0.00-0.30); Basophils % (Auto) 0.4 % (0.0-2.0); Eosinophils # (Auto) 0.14 K/mcL (0.00-0.70); Eosinophils % (Auto) 1.8 % (0.0-7.0); Hematocrit 31.7 % (40.1-51.0); Hemoglobin 10.9 g/dL (13.7-17.5); Lymphocytes # (Auto) 0.73 K/mcL (1.50-4.80); Lymphocytes % (Auto) 9.4 % (15.5-49.0); Mean Corpuscular HGB Conc 34.4 g/dL (31.0-36.0); Mean Platelet Volume 8.8 fL (8.8-12.5); Monocytes # (Auto) 0.62 K/mcL (0.10-0.90); Neutrophils % (Auto) 79.8 % (38.0-78.0); Platelet Count 308 K/mcL (140-440); RBC 3.41 M/mcL (4.63-6.08); Red Cell Distribution Width 13.2 % (11.5-14.5); WBC 7.8 K/mcL (4.5-11.0)
[2023-09-13 07:18] LABS: ALT/SGPT 72 U/L (<40); AST/SGOT 57 U/L (<40); Albumin 2.7 gm/dL (3.2-5.2); Alkaline Phosphatase 69 U/L (39-117); Bilirubin,Total 0.5 mg/dL (0.1-1.0); Blood Urea Nitrogen 19 mg/dL (8-23); Calcium 8.3 mg/dL (8.6-10.4); Carbon Dioxide 24 mmol/L (22-30); Chloride 101 mmol/L (96-108); Globulin 2.8 gm/dL (2.2-3.7); Glomerular Filtration Rate 75; Glucose 159 mg/dL (70-105)
== END 2023-09-13 10:50 | disposition home or self-care (01) | DRG 871 ==
LOC: ED 05:33 → MEDSUR 11:45
PROVIDERS: ADMIT Student in an Organized Health Care Education/Training Program; ATTEND Internal Medicine